=== PATIENT | male | born 1960 | race Two or more races ===

== ENCOUNTER 2019-05-21 21:53 | Inpatient (IN) | payer SELFPAY ==
[~2019-05-21] VITALS: Ht 165.1 cm; Wt 72.6 kg
[2019-05-21] MEDS ORDERED: GLUCOPHAGE500 MG ORAL (22:00)
[2019-05-21 22:10] VITALS: BP 152/79
--- NOTE | 2019-05-21 22:10 | NUR ---
ED Nurse Note: Pt walked into ED from home for c/o neck and back pain x 10 days, worse today. Pt also reports L sided weakness, tingling and numbness. Pt does not have any facial droop or slurred speech at this time. Pt brother is bedside. Pt is aaox4, breathing is normal and unlabored, no cardiac distress noted. Pt placed on conventions assistant. Will continue to monitor.
--- NOTE | 2019-05-21 22:17 | Emergency Room Report ---
History of Present Illness General Chief Complaint: Pain Source: Patient Present Illness HPI This is a 58-year-old male with a history of diabetes. He presents with complaint of numbness in the left side of his body. Onset for about 10 days. He said it was intermittently before. Also with dizziness and lightheadedness. It would last for few minutes to an hour for the last 10 days but since this morning is been constant. He complained of numbness to the left facial area around the cheek area. No numbness to the forehead. He also said that he has weakness in his left arm and numbness to his left arm and leg. He had this problem before about 2 to 3 years ago. It lasted only an hour and went away. He has no family doctor. He is taking Glucophage that was prescribed to him when he was in [place]. Patient denies any slurred speech. No nausea no vomiting. When he walks he felt dizzy and lightheaded. No falling however. Denies any chest pain. Denies any shortness of breath. Allergies: Coded Allergies: No Known Allergies (Unverified , 05/21/19) Patient History Past Medical History: see triage record, old chart reviewed, DM Past Surgical History: none Pertinent Family History: none Social History: Denies: smoking Immunizations: other Reviewed Nursing Documentation: PMH: Agreed; PSxH: Agreed Nursing Documentation-PM Past Medical History: No History, Except For Hx Diabetes: Yes Review of Systems Eye: Denies: eye pain, blurred vision ENT: Denies: ear pain, nose congestion, throat swelling Respiratory: Denies: cough, shortness of breath Cardiovascular: Denies: chest pain, palpitations Gastrointestinal: Denies: abdominal pain, diarrhea, nausea, vomiting Musculoskeletal: Denies: back pain, joint pain Skin: Denies: rash Neurological: Reports: numbness, focal weakness; Denies: headache Endocrine: Denies: increased thirst, increased urine Hematologic/Lymphatic: Denies: easy bruising All Other Systems: negative except mentioned in HPI Physical Exam Vital Signs Date Time Temp Pulse Resp B/P (MAP) Pulse Ox O2 Delivery O2 Flow Rate FiO2 05/21/19 21:56 98.4 91 16 152/79 (103) 96 Room Air Vitals with high blood pressure Sp02 EP Interpretation: reviewed, normal General Appearance: well appearing, no apparent distress, alert Head: normocephalic, atraumatic Eyes: bilateral eye PERRL, bilateral eye EOMI ENT: hearing grossly normal, normal pharynx Neck: full range of motion, supple, no meningismus Respiratory: chest non-tender, lungs clear, normal breath sounds Cardiovascular #1: regular rate, rhythm, no murmur Gastrointestinal: normal bowel sounds, non tender, no mass, no organomegaly, no bruit, non-distended Musculoskeletal: back normal, normal range of motion, gait/station normal Neurologic: bulk picker III-XII nml as tested, oriented x3, speech normal, normal gait , other - Patient with decrease sensation on left arm and leg. 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 Psychiatric: mood/affect normal Medical Decision Making Diagnostic Impression: Primary Impression: CVA (cerebral vascular accident) Qualified Codes: I63.9 - Cerebral infarction, unspecified ER Course Patient presents with symptoms concerning for CVA. Probably small vessel ischemia secondary to his diabetes and high blood pressure. No evidence of any bleed on the CT scan. Aspirin given here. Patient will be admitted for further work-up. I contacted Dr. Tompkins for admission. EKG Diagnostic Results Rate: normal Rhythm: NSR ST Segments: no acute changes ASA given to the pt in ED: Yes Rhythm Strip Diag. Results EP Interpretation: yes Rate: 82 Rhythm: NSR, no PVC's, no ectopy Chest X-Ray Diagnostic Results Chest X-Ray Diagnostic Results : Chest X-Ray Ordered: Yes # of Views/Limited/Complete: 1 View Indication: Other EP Interpretation: Yes Interpretation: no consolidation, no effusion, no pneumothorax, no acute cardiopulmonary disease Impression: No acute disease CT/MRI/US Diagnostic Results CT/MRI/US Diagnostic Results : Imaging Test Ordered: CT head Impression Neg per radiologist. Last Vital Signs Date Time Temp Pulse Resp B/P (MAP) Pulse Ox O2 Delivery O2 Flow Rate FiO2 05/21/19 21:56 98.4 91 16 152/79 (103) 96 Room Air Status: improved Disposition: ADMITTED INPATIENT Condition: Serious Benja Salas MD May 21, 2019 22:17
--- NOTE | 2019-05-21 22:25 | NUR ---
ED Nurse Note: Pt taken to CT.
[2019-05-21 22:38] LABS: BASOPHILS % (AUTO) 1.2 % (0.0-2.0); EOSINOPHILS % (AUTO) 1.8 % (0.0-3.0); HEMATOCRIT 43.8 % (42.0-52.0); HEMOGLOBIN 14.2 G/DL (14.2-18.0); LYMPHOCYTES % (AUTO) 37.9 % (20.0-45.0); MEAN CORPUSCULAR VOLUME 92 FL (80-99); MONOCYTES % (AUTO) 6.2 % (1.0-10.0); NEUTROPHILS % (AUTO) 52.9 % (45.0-75.0); PLATELET COUNT 191 K/UL (150-450); RED BLOOD COUNT 4.77 M/UL (4.70-6.10); RED CELL DISTRIBUTION WIDTH 12.5 % (11.6-14.8); WHITE BLOOD COUNT 8.4 K/UL (4.8-10.8)
--- NOTE | 2019-05-21 22:38 | Diagnostic Imaging Report ---
Indication: Headache Technique: Contiguous 5 mm thick transaxial imaging of the head obtained in a Siemens Sensation [address] scanner. Soft tissue and bone windows generated. Automatic Exposure Control was utilized. Total Dose length Product (DLP): 1072.2mGycm CT Dose Index Volume (CTDIvol): 53.4 mGy Comparison: none Findings: There is mild prominence of the ventricles consistent with atrophy. Mild, nonspecific, white matter hypoattenuation is noted throughout the brain consistent with chronic small vessel disease. There is no midline shift, edema, acute hemorrhage, mass effect, or abnormal extra-axial fluid collections. Bones are unremarkable. Impression: No acute intracranial bleed, mass effect or edema. Mild atrophy of the brain. Nonspecific white matter hypoattenuation probably due to chronic small vessel disease. The CT scanner at [facility] is accredited by the [employer] and the scans are performed using dose optimization techniques as appropriate to a performed exam including Automatic Exposure control.
--- NOTE | 2019-05-21 22:42 | NUR ---
ED Nurse Note: URINE SPECIMEN COLLECTED AND SENT DOWN STAIRS
[2019-05-21 22:45] LABS: APPEARANCE,URINE CLEAR; BILIRUBIN, URINE NEGATIVE (NEGATIVE); COLOR,URINE PALE YELLOW; GLUCOSE, URINE (UA) NEGATIVE (NEGATIVE); KETONES,URINE NEGATIVE (NEGATIVE); LEUKOCYTE ESTERASE ,URINE NEGATIVE (NEGATIVE); NITRITE,URINE NEGATIVE (NEGATIVE); PH,URINE 5 (4.5-8.0); PROTEIN,URINE NEGATIVE (NEGATIVE); UROBILINOGEN,URINE NORMAL MG/DL (0.0-1.0)
[2019-05-21 22:56] LABS: ANION GAP 11 mmol/L (5-15); BLOOD UREA NITROGEN 21 mg/dL (7-18); CALCIUM 9.7 MG/DL (8.5-10.1); CARBON DIOXIDE 26 MMOL/L (21-32); CHLORIDE 105 MMOL/L (98-107); CREATININE 0.9 MG/DL (0.55-1.30); SODIUM 142 MMOL/L (136-145)
[2019-05-21 23:00] LABS: ALANINE AMINOTRANSFERASE 25 U/L (12-78); ALBUMIN 3.8 G/DL (3.4-5.0); ALKALINE PHOSPHATASE 90 U/L (46-116); ASPARTATE AMINO TRANSFERASE 21 U/L (15-37); BILIRUBIN,TOTAL 0.3 MG/DL (0.2-1.0)
--- NOTE | 2019-05-22 00:15 | NUR ---
ED Nurse Note: Eduard Sherman RN.
--- NOTE | 2019-05-22 00:35 | NUR ---
ED Nurse Note: Pt stable for transfer to unit at this time per ERMD. Pt is aaox4, no acute distress noted. Vitals are stable as charted. Pt taken to unit via gurney by roger and RN, connected to bus driver/monitor. Pt IV is patent and intact. pt belongings sent with pt.
--- NOTE | 2019-05-22 00:40 | NUR ---
NURSE NOTES: Pt transferred to unit via [facility]. A/O x4, ambulatory, steady gait. Checked belongings with RN. Denies any pain at this time. No signs of acute neurological symptom, but c/o numbness on left arm and left leg. VS WNL. SR on cardroom drawing runner. On room air with no sob, normal breath sounds. IV on L AC 20G, SL, asymptomatic. Abd, soft, round, non-tender. No acute distress noted at this time. Will continue to monitor. Bed in the lowest position and locked. Side rails up x3. Call light within reach.
[2019-05-22 01:00] VITALS: BP 147/81
--- NOTE | 2019-05-22 02:00 | NUR ---
NURSE NOTES: Left a message to Dr. Marina regarding admitting order. Will continue to monitor.
[2019-05-22 04:00] VITALS: BP 112/60
[2019-05-22 04:49] LABS: HEMATOCRIT 41.5 % (42.0-52.0); HEMOGLOBIN 14.1 G/DL (14.2-18.0); LYMPHOCYTES % (AUTO) 38.6 % (20.0-45.0); MEAN CORPUSCULAR VOLUME 89 FL (80-99); MONOCYTES % (AUTO) 7.6 % (1.0-10.0); NEUTROPHILS % (AUTO) 50.7 % (45.0-75.0); PLATELET COUNT 191 K/UL (150-450); RED BLOOD COUNT 4.64 M/UL (4.70-6.10); RED CELL DISTRIBUTION WIDTH 11.5 % (11.6-14.8); WHITE BLOOD COUNT 7.8 K/UL (4.8-10.8)
[2019-05-22 05:19] LABS: ALANINE AMINOTRANSFERASE 26 U/L (12-78); ALBUMIN 3.5 G/DL (3.4-5.0); ALKALINE PHOSPHATASE 75 U/L (46-116); ANION GAP 8 mmol/L (5-15); ASPARTATE AMINO TRANSFERASE 22 U/L (15-37); BILIRUBIN,TOTAL 0.4 MG/DL (0.2-1.0); BLOOD UREA NITROGEN 17 mg/dL (7-18); CALCIUM 8.9 MG/DL (8.5-10.1); CARBON DIOXIDE 26 MMOL/L (21-32); CHLORIDE 107 MMOL/L (98-107); CREATININE 0.8 MG/DL (0.55-1.30); POTASSIUM 3.7 MMOL/L (3.5-5.1); SODIUM 141 MMOL/L (136-145)
--- NOTE | 2019-05-22 06:26 | NUR ---
NURSE NOTES: Pt appears calm, comfortable. No acute distress noted at this time. No symptoms of neurological distress noted. Will continue to monitor.
--- NOTE | 2019-05-22 06:30 | NUR ---
NURSE NOTES: Call back from regarding admitting order. Per , answering machine was not working but fixed and called immediately after fix. Pt stable but left side weakness and numbness on left face. Will continue to monitor.
--- NOTE | 2019-05-22 07:32 | NUR ---
HAND-OFF: Report given to KENNEDI León.
--- NOTE | 2019-05-22 07:33 | NUR ---
NURSE NOTES: Late entry: PT and report received from KENNEDI Israel; AAOx4 pleasant acknowledges staff, able to follow commands, somewhat fluent with macanese, speaks Albanian; reports he has no primary care, has not seen a provider within 3 years, gets his medication shipped in from [place] taking his meds for approximately 3-4 years, reports no other medication currently being taken; consistent story with ED; L-side weakness 1/5 hand strength compared to R-side 4/5 hand strength; received PT when he was having his breakfast, no difficulty swallowing or coughing noted; received on RA no S/S of respiratory distress; L-AC 20g flushed patent saline locked; reported PT is able to ambulate, call light within reach, PT has yellow socks on for fall precaution, advised PT to use call light to call staff. Will continue to monitor PT.
[2019-05-22 08:00] VITALS: BP 126/68
--- NOTE | 2019-05-22 09:46 | NUR ---
NURSE NOTES: PT neck is hurting, gave PRN tylenol. Will continue to monitor.
--- NOTE | 2019-05-22 11:35 | NUR ---
PT EVALUATION NOTE Patient seen for initial evaluation. Patient is independent with bed mobility, transfers and ambulation without an assistive device, good balance, stable gait. Skilled inpatient PT intervention not warranted as patient is independent with all functional mobility. Patient discharged from PT. Mau KOLB notified. Addendum: 05/22/19 at 1244 by BILLIE SOLORZANO PT Amended: Links added.
[2019-05-22 12:00] VITALS: BP 107/65
--- NOTE | 2019-05-22 14:00 | NUR ---
NURSE NOTES: Patient and family are anxious to go home,Dr. Tompkins came to see patient,need to be seen by neurologist -Dr. Donald [address] Donald in office,I asked when he can see patient,He Stated "I will see patient today,I don't know what time Addendum: 05/22/19 at 1408 by Zulay Collins RN notified family Dr. Donald is coming anytime today,family decided to wait for neurologist to see patient,Primary nurse KENNEDI León notified
--- NOTE | 2019-05-22 14:11 | NUR ---
ST NOTES: REFERRED FOR SWALLOW EVALUATION BY DR. MORROW, SEE FULL REPORT. DYSPHAGIA RISK FACTORS FOR THIS 58 Y.O. 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 ALSO VARIABLE LEFT CHEEK AND FOREHEAD AND BACK OF THE NECK PRESSURE. PER PATIENT, HE ALSO HAD THE SAME SYMPTOMS 2-3 YEARS AGO THAT RESOLVED AFTER AN HOUR. CT HEAD SCAN RECENT NEGATIVE FOR ACUTE EVENT AND HAS MILD ATROPHY OF BRAIN. NO MRI BRAIN SCAN BUT WILL SEE NEUROLOGIST DR BOLAND. H/O POSSIBLE TIA 2-3 YEARS AGO (SIMILAR SX ON LEFT SIDE), DIABETES, ENDOCRINE D/O. NO POLST/AD REGARDING TUBE FEEDINGS. PRIOR TO ADMIT, THE PATIENT IS FROM HOME (AND WORKS) AND ATE REGULAR TEXTURE DIET AND THIN LIQUIDS. CURRENTLY, HE IS ON A LOW NA [facility] SOFT CHOPPED DIET AND THIN LIQUIDS. PER RN, NO OVERT S/S OF ASPIRATION WITH MEALS AND WITH MEDS. PATIENT DENIES DYSPHAGIA BEFORE AND NOW. GOOD INTAKE. HE IS ALERT AND ABLE TO COMMUNICATE NEEDS IN SWEDISH USING A HEAVY FRISIAN ACCENT. COGNITIVE SKILLS FOR THIS SETTING ARE GROSSLY FUNCTIONAL. INITIAL IMPRESSIONS: GROSSLY FUNCTIONAL OROMOTOR SKILLS MILD NUMBNESS ON LEFT CHEEK AND FOREHEAD (INCONSISTENT) GROSSLY FUNCTIONAL SWALLOW FOR THIN LIQUIDS (SEQUENTIAL SIPS VIA STRAW 3 OZ WATER MARSHA SWALLOW PROTOCOL), W/O OVERT ASPIRATION GROSSLY FUNCTIONAL SWALLOW WITH PUREED TSP AND 1/2 CRACKER (AND LUNCH MEAL) W/O OVERT ASPIRATION MAY HAVE SILENT ASPIRATION RISK (CANNOT R/O W/O MOD BARIUM SWALLOW STUDY OR MBSS) RECOMMENDATIONS: CONSIDER MBSS IP OR OP IF DC TO FURTHER ASSESS SWALLOW, DETERMINE SILENT ASP RISK, AND ATTEMPT TRIAL TX IF PO CONTINUES, CONSIDER UPGRADE TO REGULAR TEXTURE AND THIN LIQUIDS (LOW NA PER MD) W/O SPECIFIC NEED FOR ASPIRATION PRECAUTIONS. 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 D/W PATIENT, HIS SON, AND HIS BROTHER.
--- NOTE | 2019-05-22 15:00 | NUR ---
NURSE NOTES: MD Asim made rounds, orders given for stat 2D echo w/ doppler and carotid vert duplex scan bilateral. Called vascular lab and echo to confirm order.
--- NOTE | 2019-05-22 15:04 | Cardiac Electrophysiology PN ---
Subjective Subjective [id number] Objective Last 24 Hour Vital Signs Date Time Temp Pulse Resp B/P (MAP) Pulse Ox O2 Delivery O2 Flow Rate FiO2 05/22/19 12:00 98.5 72 21 107/65 (79) 97 05/22/19 11:50 77 05/22/19 10:19 98.4 05/22/19 08:07 72 05/22/19 08:00 98.4 80 18 126/68 (87) 98 05/22/19 06:51 Room Air 05/22/19 04:00 97.8 77 18 112/60 (77) 98 05/22/19 04:00 70 05/22/19 01:00 98.6 69 16 147/81 (103) 98 05/22/19 00:35 98.4 65 12 155/88 100 Room Air 05/22/19 00:26 Room Air 05/21/19 22:10 98.4 75 16 152/79 96 Room Air 05/21/19 21:56 98.4 91 16 152/79 (103) 96 Room Air Intake and Output 05/21/19 05/22/19 19:00 07:00 Intake Total 120 ml Balance 120 ml Intake Oral 120 ml # Voids 1 # Bowel Movements 2 Laboratory Tests Test 05/21/19 22:20 05/21/19 22:30 05/22/19 03:50 White Blood Count 8.4 K/UL (4.8-10.8) 7.8 K/UL (4.8-10.8) Red Blood Count 4.77 M/UL (4.70-6.10) 4.64 M/UL (4.70-6.10) L Hemoglobin 14.2 G/DL (14.2-18.0) 14.1 G/DL (14.2-18.0) L Hematocrit 43.8 % (42.0-52.0) 41.5 % (42.0-52.0) L Mean Corpuscular Volume 92 FL (80-99) 89 FL (80-99) Mean Corpuscular Hemoglobin 29.7 PG (27.0-31.0) 30.3 PG (27.0-31.0) Mean Corpuscular Hemoglobin Concent 32.4 G/DL (32.0-36.0) 34.0 G/DL (32.0-36.0) Red Cell Distribution Width 12.5 % (11.6-14.8) 11.5 % (11.6-14.8) L Platelet Count 191 K/UL (150-450) 191 K/UL (150-450) Mean Platelet Volume 7.9 FL (6.5-10.1) 7.4 FL (6.5-10.1) Neutrophils (%) (Auto) 52.9 % (45.0-75.0) 50.7 % (45.0-75.0) Lymphocytes (%) (Auto) 37.9 % (20.0-45.0) 38.6 % (20.0-45.0) Monocytes (%) (Auto) 6.2 % (1.0-10.0) 7.6 % (1.0-10.0) Eosinophils (%) (Auto) 1.8 % (0.0-3.0) 2.0 % (0.0-3.0) Basophils (%) (Auto) 1.2 % (0.0-2.0) 1.0 % (0.0-2.0) Prothrombin Time 10.4 SEC (9.30-11.50) Prothromb Time International Ratio 1.0 (0.9-1.1) Activated Partial Thromboplast Time 28 SEC (23-33) Sodium Level 142 MMOL/L (136-145) 141 MMOL/L (136-145) Potassium Level 4.0 MMOL/L (3.5-5.1) 3.7 MMOL/L (3.5-5.1) Chloride Level 105 MMOL/L (98-107) 107 MMOL/L (98-107) Carbon Dioxide Level 26 MMOL/L (21-32) 26 MMOL/L (21-32) Anion Gap 11 mmol/L (5-15) 8 mmol/L (5-15) Blood Urea Nitrogen 21 mg/dL (7-18) H 17 mg/dL (7-18) Creatinine 0.9 MG/DL (0.55-1.30) 0.8 MG/DL (0.55-1.30) Estimat Glomerular Filtration Rate > 60 mL/min (>60) > 60 mL/min (>60) Glucose Level 118 MG/DL (74-106) H 85 MG/DL (74-106) Calcium Level 9.7 MG/DL (8.5-10.1) 8.9 MG/DL (8.5-10.1) Total Bilirubin 0.3 MG/DL (0.2-1.0) 0.4 MG/DL (0.2-1.0) Aspartate Amino Transf (AST/SGOT) 21 U/L (15-37) 22 U/L (15-37) Alanine Aminotransferase (ALT/SGPT) 25 U/L (12-78) 26 U/L (12-78) Alkaline Phosphatase 90 U/L (46-116) 75 U/L (46-116) Troponin I 0.000 ng/mL (0.000-0.056) Total Protein 7.6 G/DL (6.4-8.2) 7.1 G/DL (6.4-8.2) Albumin 3.8 G/DL (3.4-5.0) 3.5 G/DL (3.4-5.0) Globulin 3.8 g/dL 3.6 g/dL Albumin/Globulin Ratio 1.0 (1.0-2.7) 1.0 (1.0-2.7) Urine Color Pale yellow Urine Appearance Clear Urine pH 5 (4.5-8.0) Urine Specific [place] 1.020 (1.005-1.035) Urine Protein Negative (NEGATIVE) Urine Glucose (UA) Negative (NEGATIVE) Urine Ketones Negative (NEGATIVE) Urine Blood Negative (NEGATIVE) Urine Nitrite Negative (NEGATIVE) Urine Bilirubin Negative (NEGATIVE) Urine Urobilinogen Normal MG/DL (0.0-1.0) Urine Leukocyte Esterase Negative (NEGATIVE) Valente Dailey MD May 22, 2019 15:04
[2019-05-22 16:00] VITALS: BP 145/87
--- NOTE | 2019-05-22 16:30 | Diagnostic Imaging Report ---
Indication: Dyspnea Comparison: None A single view chest radiograph was obtained. Findings: Cardiomediastinal appearance is within normal limits for age. The lungs are clear. Pulmonary vascularity is appropriate. The diaphragmatic contour is smooth and costophrenic angles are sharp. No pleural effusions are identified. The bones are unremarkable. Impression: No acute findings
--- NOTE | 2019-05-22 16:32 | NUR ---
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 98.5 HR 91 RR 16 B/P 152/[address] HEAD= NEGATIVE IS: ASA ADMITTED TO STEP DOWN @ 0035 STEP DOWN STATUS DCP RETURN HOME
--- NOTE | 2019-05-22 16:47 | Diagnostic Imaging Report ---
Indication: TIA. History of CVA. Atherosclerotic disease. Cardiac risk factors. TECHNIQUE: Duplex extracranial carotid and vertebral artery sonography performed with color flow imaging and waveform analysis. COMPARISON: None FINDINGS: Right carotid: Grayscale and color-flow imaging demonstrating no hemodynamically significant stenosis within the common carotid artery, extracranial internal carotid artery. Peak systolic and end-diastolic velocities are within normal limits. ICA/CCA ratios are within normal limits. Mild heterogeneous plaques are demonstrated consistent with atherosclerotic disease. Left carotid: Grayscale and color-flow imaging demonstrating no hemodynamically significant stenosis within the common carotid artery, extracranial internal carotid artery. Peak systolic and end-diastolic velocities are within normal limits. ICA/CCA ratios are within normal limits. Mild heterogeneous plaques are demonstrated consistent with atherosclerotic disease. Vertebral arteries: Antegrade flow demonstrated within both vertebral arteries. IMPRESSION: No hemodynamically significant extracranial carotid artery stenosis identified. Antegrade flow within both vertebral arteries. This report utilizes carotid stenosis grading criteria based on the meeting of Society of radiologists in ultrasound consensus conference, December 2001.
--- NOTE | 2019-05-22 17:00 | Consultation ---
DATE OF CONSULTATION: 05/22/2019 CARDIOLOGY CONSULTATION CONSULTING PHYSICIAN: Valente Dailey M.D. REFERRING PHYSICIAN: Braden Tompkins M.D. REASON FOR CONSULTATION: Left arm pain. HISTORY OF PRESENT ILLNESS: The patient is a 58-year-old Wallisian gentleman with history of diabetes, came to the emergency room with left-sided numbness. He has numbness in the left arm as well as left leg and was intermittently before. The patient also had lightheadedness and dizziness. The patient denies any prior myocardial infarction or coronary artery disease or congestive heart failure. The patient denies any hypertension either. He has no family doctor and takes Glucophage that was prescribed when he was in [place]. The patient was admitted and a Cardiology consultation was requested. REVIEW OF SYSTEMS: Negative other than what was mentioned in the history of present illness. PAST MEDICAL HISTORY: As mentioned above. FAMILY HISTORY: Noncontributory. SOCIAL HISTORY: Does not smoke or drink alcohol. PHYSICAL EXAMINATION: VITAL SIGNS: Show blood pressure of 107/65, pulse 72, respirations 18, and he is afebrile. HEAD AND NECK: Showed no jugular venous distention. LUNGS: Clear. CARDIOVASCULAR: Shows regular S1 and S2 with no gallop or murmur. ABDOMEN: Soft. EXTREMITIES: No pitting edema. DIAGNOSTIC DATA: His laboratories show white count of 7.8, hemoglobin of 14, hematocrit of 41, and platelet count is 191,000. Sodium 141, potassium 3.7, BUN of 17, creatinine 0.8, and glucose of 85. His troponin is negative. Urinalysis is negative. ASSESSMENT/PLAN: Left arm numbness. The patient does not have any chest pain. EKG is nonischemic. We will repeat the cardiac enzymes and get an echocardiogram for further evaluation. We will also get a carotid duplex in view of his left arm numbness. Neuro evaluation is also pending. It is of note that the patient already underwent CT of the brain that show no acute bleed or mass effect or edema. Thank you very much, Dr. Tompkins, for allowing me to participate in the care of this patient. Please do not hesitate to contact me for any questions regarding my evaluation. Valente Dailey M.D. DR: LATOYA JOB#: [id number] CC:
--- NOTE | 2019-05-22 17:55 | NUR ---
NURSE NOTES: Late entry: MD Odilon made rounds, assessed PT, orders given for STAT MRI head, MRA neck only with contrast, MRA brain no contrast, off tele orders given also. Consent for contrast signed by PT AAOx4; copy given to manager of radiology, and original placed in PT folder.
[2019-05-22] MEDS ORDERED: Gadavist 7.5mMol/7.5ml vial IV PRN (18:15)
--- NOTE | 2019-05-22 18:20 | NUR ---
NURSE NOTES: Late entry: Orders given by MD Odilon to change lab orders placed for this evening to be changed to tomorrow morning; orders for ASA 325mg QD oral also given to replace current order. Will place orders on behalf of .
--- NOTE | 2019-05-22 19:26 | NUR ---
HAND-OFF: Report given to KENNEDI Israel; PT off unit getting stat MRI/MRA scans with off tele order.
--- NOTE | 2019-05-22 20:03 | NUR ---
NURSE NOTES: Report received from KENNEDI León. Pt came back from MRI at this time. A/O x4. Steady gait. No acute neuro symptom noted. On room air with no sob. nurse monitoring applied and SR noted. IV on L AC 20G, intact and asymptomatic. Pt sitting on the chair next to bed. Call light within reach. Will continue to monitor.
[2019-05-22] MEDS ORDERED: ASPIRIN500 MG ORAL (20:21)
--- NOTE | 2019-05-22 20:46 | Diagnostic Imaging Report ---
Indication: Left-sided arm and leg numbness. Vertigo. Lightheadedness. Technique: The head was imaged in a 1.5 Dari magnet. Sequences obtained include sagittal and axial T1 FLAIR, axial T2 fast spin echo with fat saturation, axial T2* GRE, axial T2 FLAIR, diffusion and ADC map. Comparison: Noncontrast CT head 05/21/2019 Findings: There is mild, age-appropriate prominence of the ventricles consistent with mild centrally predominant atrophy. Minimal, nonspecific periventricular T2 hyperintensity noted. A few scattered foci of T2 hyperintense signal noted elsewhere as well within white matter. There is no restricted diffusion. Hoskins-white differentiation is normal. There is no mass effect, midline shift, edema, or hemorrhage. There are no abnormal extra-axial or intra-axial fluid collections. The corpus callosum and sella are unremarkable. The brainstem and cerebellum are unremarkable. Bone marrow signal within the visualized osseous structures appears age appropriate and unremarkable otherwise. Impression: No acute intracranial findings. No evidence of acute infarct. Mild atrophy Minimal periventricular T2 hyperintensity, likely chronic microvascular changes involving white matter tracts.
--- NOTE | 2019-05-22 20:48 | Diagnostic Imaging Report ---
Indication: Syncope. Lightheadedness. Left-sided numbness weakness Technique: Study was performed in a 1.5 Dari magnet. Gadolinium-enhanced MR angiography of the extracranial portions of both carotid arteries performed from the thoracic arch to the skull base. Maximum intensity projection images displayed in different projections. Comparison: None Findings: Right carotid: No significant carotid stenosis is identified. Left carotid: No significant stenosis is identified. Vertebral arteries below the skull base appear unremarkable. IMPRESSION: No extracranial carotid or vertebral stenosis identified on this study. [facility] has communicated the preliminary results to the Emergency Department. Their findings are largely concordant with this report.
--- NOTE | 2019-05-22 21:00 | NUR ---
NURSE NOTES: Left message regarding discharge to Dr. Donald, awaiting for call back.
--- NOTE | 2019-05-22 21:01 | Consultation ---
DATE OF CONSULTATION: 05/22/2019 NEUROLOGIC CONSULTATION CONSULTING PHYSICIAN: Andrew Donald M.D. CHIEF COMPLAINT: This is the first [facility] admission for this 58-year-old right-handed man with a chief complaint of left-sided numbness and weakness including in the face beginning about 10 days or so ago. The patient denies a history of hypertension although he had at least 1 to 2 elevated blood pressures while in the hospital. He has had adult-onset diabetes mellitus type 2 for 3 years. He denies any tobacco use or heart disease or hyperlipidemia. There is no fever, chills, or recent infections. He denies any migraine headache disorder or cancer. He has had right-sided neck pain for 25 days and some left-sided tightness as well. The patient's numbness started in the index and middle finger of his left hand. Then he had it over days. He did not see any doctor. Today he noted numbness in his entire left arm and left leg. He has had episodic numbness in the left side of his face and in the right frontal area. The patient noted heaviness in his left arm and left leg. He denies any seizures or blackouts or memory loss. There is no loss of smell or taste, diplopia, or blurred vision. There are no tremors or shakes. No chest pain or shortness of breath or peripheral edema. He denies any dysarthria. The patient denies any previous strokes or episodes of numbness in the past. He was brought to this hospital. An EKG on 05/21/2019 was normal. His laboratory studies reveal that he had a normal CBC, although today his hemoglobin has fallen in the low-normal range of normocytic, normochromic indices. His platelet count and white count are normal. Urinalysis was normal. His chemistries revealed initially a BUN of 21, it is now 17 with a normal creatinine. He had a slightly elevated sugar on admission, today it is normal. The rest of the chemistries are normal. PT and PTT are normal. The patient had a chest x-ray, which revealed no acute findings. The head CT scan of the brain on 05/21/2019 noncontrast revealed some mild atrophy and some white matter hypoattenuation throughout the brain consistent with chronic small vessel disease. The patient had a duplex scan of the carotid and vertebral arteries. The vertebral arteries were normal. Antegrade flow in the vertebral arteries is normal. The internal carotid arteries revealed some mild heterogeneous plaques on the left side and right side consistent with arteriosclerotic disease. No significant carotid artery stenosis noted. The patient's mother had a cerebral hemorrhage 40 years ago and . PAST MEDICAL HISTORY/PAST MEDICAL ILLNESSES: 1. Cholelithiasis with cholecystectomy. 2. AODM type 2. See above. MEDICATIONS: He is on metformin 500 mg daily at home only. He was placed on 325 mg of aspirin in the emergency room and now on 81 mg. HABITS: He does not drink, smoke, or take illegal drugs. SOCIAL HISTORY: He is , has one child in good health. FAMILY HISTORY: His father of "natural causes." Mother of cerebral hemorrhage. He has a brother who is diabetic. REVIEW OF SYSTEMS: His appetite is good. He is 155 pounds, 5 feet 5 inches tall. The rest of the review of systems is noncontributory. He does have left knee pain beginning about a month ago and upper back pain, which "comes and goes." PHYSICAL EXAMINATION: VITAL SIGNS: Blood pressure is 145/87, pulse is 79 and regular, temperature is 99.3 degrees, respiration rate is 20. HEENT: Examination of head, ears, eyes, nose, mouth, throat is basically intact. NECK: There is posterior cervical tenderness, especially in the left side with a feeling of tightness. There is no real limitation of motion. Carotids are +2 without bruits. There is no muscle spasm. LUNGS: Clear to auscultation. CARDIOVASCULAR: PMI was not felt. JVP was flat. The patient had normal S1. S2 is physiologically split. I could not hear an S3, S4, murmurs, or rubs. ABDOMEN: The abdomen is obese. Bowel sounds intact. No tenderness, masses, or organomegaly. BACK: There was slight spinal tenderness around T3-T4 to percussion. EXTREMITIES: The peripheral pulses are +2 in the lower extremities. NEUROLOGIC EXAMINATION: MENTAL STATUS: Mental status was difficult to evaluate because his Welsh is not perfect. He is alert and awake. Judgment is difficult to tell. Affect, his affect is appropriate. Memory, past memory is intact to his birthday 1960. Immediate recall is 3/3 objects. Recent recall is 1/3 objects at 5 minutes. Intellect could not be tested. Orientation, he knew it is 05/22/2019. He knew he is on the second floor at [facility]. He is oriented to person. Language function, spoken speech is basically partially fluent given his difficulty with Welsh. There might have been some right left confusion. It is difficult to say. CRANIAL NERVE EXAMINATION: CRANIAL NERVE II: Visual heath are intact to confrontation. Visual acuity not tested. CRANIAL NERVES III, IV, AND : Extraocular motility was full without complaints of diplopia. Pupils are 5 mm, round, light reactive, and near reactive. CRANIAL NERVE V: Facial and corneal sensation is intact to fine touch and pinprick. CRANIAL NERVE VII: Facial strength is 5/5. CRANIAL NERVE VIII: Auditory acuity is intact to whisper. CRANIAL NERVES IX AND X: Gag is intact bilaterally. CRANIAL NERVE XI: Sternocleidomastoid strength is 5/5. CRANIAL NERVE XII: Tongue protrudes in the midline without fasciculations or atrophy. MUSCLE EXAMINATION: Muscle bulk and tone is normal. Muscle strength maybe minimally diminished in the left upper and left upper extremity equally though with breakaway weakness. Little hard to tell. There was some increased pain at the left shoulder and testing the muscle strength in his arms. REFLEXES: +1 in the upper extremities, +1 at the knees, +2 at the ankles with downgoing toes and testing for Babinski response. COORDINATION: Olturm-sctydm-ttuy reveals slight endpoint tremor. Rapid alternating movements were intact. Ysyd-ib-apia testing is normal. GAIT AND STATION: He had a normal based gait with slight decreased right arm swing. Left arm swing was normal. Romberg was negative. Heel and toe walk were intact. Tandem walk was normal. SENSORY EXAMINATION: He had decreased fine touch to his left lower extremity to about the knee. He had patchy decreased pinprick in the left lower extremity [id number]. In the left upper extremity, his fine touch was decreased again with patchy decreased pinprick in the left upper extremity, which was somewhat inconsistent. Proprioception was normal. IMPRESSION: The patient has subcortical weakness involving the left upper and left lower extremity with some numbness that suggests possibility of a brainstem lesion, although he does not have dysarthria or extraocular motility problems. It would not be surprising his MRI did not reveal an acute stroke; however, I think it should be done. The lesion involving the cervical spine is possible, but the sensory loss and weakness is generally in the distribution of the cord lesion and otherwise he does have bilateral abnormalities. His toes are downgoing. There is no asymmetry of his reflexes. There is no sensory loss over the trunk. After the MRI/MRA of his brain and MRA of the neck, he can go home. The reason to do the MRIs to see if this shows any evidence of subacute infarction. He does have a family history of cerebral hemorrhage. It sounds like it could be an aneurysm given the news of his mother. The MRA also will rule out any significant size aneurysm or AVM. As far as treatment is concerned, he may need to see an orthopedic surgeon for his neck problem. He may also need an MRI of his cervical spine if the above studies are negative. The patient did have an echocardiogram on 05/21/2019, which revealed a normal left ventricle and a normal left ventricular ejection fraction. Rest of the cardiac chambers were normal in size. He did have mitral anulus and aortic root calcification. He did have some trace mitral regurgitation, but some diastolic dysfunction noted. If the patient did have a stroke, we expect him to have obviously a lacunar stroke. The patient may have hypertension because of the abnormality on his echocardiogram as well as slight elevations of his blood pressure while in the hospital. He probably needs a fasting cholesterol panel and a C-reactive protein. PLAN: 1. MRI/MRA of the brain. 2. MRA of the cervical spine with contrast. 3. Continue aspirin, but I would increase the dose to 325 mg daily. 4. C-reactive protein, fasting cholesterol panel. 5. Follow the patient's blood pressure. Thank you for this interesting case. Andrew Donald MD DR: MALI JOB#: [id number] CC:
--- NOTE | 2019-05-22 21:40 | NUR ---
NURSE NOTES: Call back from and rolando to discharge. Notified regarding discharge and okay to dc
[2019-05-22] MEDS ORDERED: ASPIRIN-LOW81 MG ORAL (21:57)
--- NOTE | 2019-05-22 22:00 | NUR ---
NURSE NOTES: Pt ready to be dc. ekg monitor out. IV out on L AC, no symptom. Pt stable. DC education given. Education packet given. DC packet given. Pt stable, steady gait. Brother made aware of dc. Walked down to hallway for pickup.
--- NOTE | 2019-05-22 23:30 | History and Physical Report ---
DATE OF ADMISSION: 05/21/2019 HISTORY OF PRESENT ILLNESS: The patient comes in because of basically numbness and weakness and left facial numbness in the left arm and left face as well as left leg, so the patient has been having left-sided numbness basically and weakness and paresthesia for about 10 days. The patient also complains of back pain and the patient is diabetic. The patient admitted to rule out CVA. The patient denies headache. Denies blurred vision. Denies any visual changes or speech pattern changes. PAST MEDICAL HISTORY: Significant for NIDDM. MEDICATIONS: Metformin. ALLERGIES: No known allergies. FAMILY HISTORY: Does have history of diabetes and hypertension. SOCIAL HISTORY: Denies history of smoking, alcohol, or illicit drugs. REVIEW OF SYSTEMS: HEENT: Denies headaches. RESPIRATORY: Denies shortness of breath. Denies cough. CARDIOVASCULAR: Denies chest pain. GASTROINTESTINAL: Denies nausea, vomiting, or diarrhea. EXTREMITIES: Denies pain. CENTRAL NERVOUS SYSTEM: Denies change in the speech or visual pattern. The patient did have facial numbness and left-sided weakness for the past 10 days as well as left-sided paresthesias. PHYSICAL EXAMINATION: VITAL SIGNS: Temperature 98.5, pulse is 72, blood pressure 107/65. HEENT: PERRLA. NECK: Supple. No lymphadenopathy. CHEST: Clear to auscultation. CARDIOVASCULAR: Regular rate and rhythm. No murmurs or extra sounds. GASTROINTESTINAL: Soft, nontender, nondistended. No organomegaly. EXTREMITIES: No edema. Does have left-sided weakness. Reflexes equal on both sides. Moves all four extremities, but is weak on the left side. About 4/5 on the left side. LABORATORY DATA: WBC of 8.4, hemoglobin 14.2, platelets 191. Sodium 142, potassium of 4, BUN of 21, creatinine 0.9, glucose of 118. ASSESSMENT AND PLAN: Rule out CVA. I have asked Dr. Donald to see the patient to rule out CVA. Basically, I have consulted Dr. Donald to rule out CVA. We will monitor the patient closely. Braden Tompkins M.D. DR: ROXANNE JOB#: [id number] CC:
[2019-05-23] MEDS ORDERED: Aspirin Baby 81mg ORAL SCH (09:00)
[2019-05-23] MEDS ORDERED: metFORMIN 500mg tab ORAL SCH (09:00)
[2019-05-23] MEDS ORDERED: Aspirin EC 325mg tab ORAL SCH (09:00)
--- NOTE | 2019-05-23 09:45 | Diagnostic Imaging Report ---
Indication: Left-sided numbness Technique: 3-D [id number] of the brain Comparison: None Findings: No significant stenosis, vascular malformation, or aneurysm is identified. Flow-related enhancement of the major intracranial arteries demonstrated including the anterior, middle, and posterior cerebral arteries. Impression: Negative MRA of the brain
--- NOTE | 2019-05-23 13:47 | Discharge Summary ---
Discharge Summary Discharge Summary _ DATE OF ADMISSION: 05/21/2019 DATE OF DISCHARGE: 05/22/2019 DISCHARGED BY: Dr. Tompkins REASON FOR ADMISSION: 58 years old male with past medical history of diabetes mellitus, presented with numbness in the left side of his body for 10 days. Initially it was intermittent , associated also with dizziness and lightheadedness. It would last for few minutes to an hour for the last 10 days, however since that morning it became constant. He complained of numbness in the left facial area around the cheek , no numbness to forehead. He also reported weakness in his left arm and leg. He had this problem about 2 to 3 years ago , but it went away. Patient denied any slurred speech. No nausea or vomiting. He reported dizziness and lightheadedness. No falls. He denied chest pain and shortness of breath. Upon evaluation vital signs were stable . Troponin negative. EKG revealed normal sinus rhythm , no acute ischemic changes. Chest x-ray revealed no acute cardiopulmonary pathology. CT of the head revealed no acute intracranial pathology ; mild atrophy of the brain noted. Laboratory work-up revealed no leukocytosis, stable hemoglobin, hematocrit and platelet count. Stable electrolytes and renal parameters . Glucose 118. Urinalysis revealed no evidence of urinary tract infection . Patient subsequently admitted to rule out CVA. CONSULTANTS: stitch cleaner Dr. Brush neurologist Dr. Donald [facility] COURSE: Patient admitted to [place]. 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 Echocardiogram demonstrated preserved ejection fraction of 60 to 65% with no evidence of left ventricular hypertrophy. Right ventricular systolic pressure of 43 consistent with moderate pulmonary hypertension. Carotid duplex revealed no hemodynamically significant extracranial carotid artery stenosis. Antegrade flow within both vertebral arteries. Patient subsequently undergone MRI of the head and MRA of the neck, which were both negative. No evidence of acute infarct. No evidence of any subacute infarction. No evidence of aneurysm or AVM. Patient was continued on antiplatelet therapy with aspirin. Blood sugar was managed with metformin. Aspirin was increased to 325 mg. Neurologist recommended C-reactive protein and fasting lipid panel , which can be done as outpatient and follow-up with blood pressure. Due to rapid and unexpected improvement in patient condition, patient was discharged in 1 day. FINAL DIAGNOSES: Left side weakness Rule out CVA DISCHARGE MEDICATIONS: See Medication Reconciliation list. DISCHARGE INSTRUCTIONS: Patient was discharged home. Follow-up with a primary care provider. Patient will need to check fasting lipid panel and follow-up with blood pressure I have been assigned to dictate discharge summary for this account. I was not involved in the patient's management. Debby Dunlap NP May 23, 2019 13:47
--- NOTE | 2019-05-28 20:38 | Coder Physician Query ---
Clarification is required for compliance, coding accuracy, and to reflect severity of illness for this patient. Dear Dr. MORROW Date: 05/28/19 [employer] OPERATOR: KATALINA MONAHAN REASON FOR ADMISSION: patient admitted to rule out CVA. 58 years old male with past medical history of diabetes mellitus, presented with numbness in the left side of his body for 10 days. Initially it was intermittent , associated also with dizziness and lightheadedness. It would last for few minutes to an hour for the last 10 days, however since that morning it became constant. He complained of numbness in the left facial area around the cheek , no numbness to forehead. He also reported weakness in his left arm and leg. CT of the brain that show no acute bleed or mass effect or edema. Negative MRA of the brain MRI brain: No acute intracranial findings. No evidence of acute infarct. FINAL DIAGNOSES: Left side weakness Rule out CVA A posssible diagnois of CVA was made in the medical record on H&P, prog notes, DC Summary. Upon review, it is difficult to determine whether this diagnosis has been ruled in, ruled out,or is still being worked up. Please indicate below the status of the CVA diagnosis. [] Treated and resolve [] Presumed and treated [] Currently under treatment [] Still being worked-up [] Ruled out Physician signature Date Please also document in your Progress Notes and/or Discharge Summary and indicate if the condition was present on admission. DEBORA
== END 2019-05-22 22:15 | disposition home or self-care (01) | DRG 948 ==
LOC: EMR 22:40 → 2W 23:09 → EDBEDREQ 05-22 00:06
DX: R53.1 Weakness (principal); R20.0 Anesthesia of skin; R42 Dizziness and giddiness; M79.602 Pain in left arm; E11.9 Type 2 diabetes mellitus without complications; Z82.3 Family history of stroke; Z79.84 Long term (current) use of oral hypoglycemic drugs; Z79.82 Long term (current) use of aspirin; I27.20 Pulmonary hypertension, unspecified; Z90.49 Acquired absence of other specified parts of digestive tract; I10 Essential (primary) hypertension; Z83.3 Family history of diabetes mellitus; I70.0 Atherosclerosis of aorta
CPT/HCPCS: 36415; 70450; 70544; 70548; 70551; 71045; 80053; 81003; 82962; 84484; 85025; 85610; 85730; 93005; 93306; 93880; 99285; A9585